=== PATIENT | female | born 1990 | race Caucasian/White ===

== ENCOUNTER 2017-04-02 12:59 | Emergency (ER) | payer MEDICAID ==
[2017-04-02 13:06] VITALS: BP 139/88; PULSE 67; RESP 16; TEMP 96.8; O2SAT 97
--- NOTE | 2017-04-02 15:35 | EDPHY ---
General Time Seen by Provider: 04/02/17 15:00 Narrative: CHIEF COMPLAINT: Laceration HISTORY OF PRESENT ILLNESS: Patient presents with complaints of laceration to the right hand. This is over the ulnar side of the palm. This happened while cleaning out a can of food. She cut on the inside of the can. Moderately painful. Worse with movement and palpation. Improved at rest. Bleeding that has stopped with pressure. No numbness or tingling. No difficulty moving the fingers. No injury elsewhere. She feels that she is up-to-date on her tetanus less than 5 years ago. No other associated complaints or modifying factors. Right-hand dominant. TIME OF INJURY: 1 hr prior to arrival TETANUS STATUS: Up-to-date less than 5 years ago MEDICAL/SURGICAL/SOCIAL HISTORY: Uncomplicated medical history. 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 REVIEW OF SYSTEMS: Ten systems reviewed and are negative unless otherwise noted in the HPI EXAMINATION General Appearance: Alert, no distress Head: normocephalic, atraumatic Cardiovascular: Symmetric radial pulses 2+. Brisk cap refill of all fingers. Neurological: A&O, sensory symmetric, interossei strength symmetric. Skin: Warm and dry, no rash. 2.5 cm laceration on the right hand, ulnar side midportion of the 5th metacarpal. No pulsatile bleeding. No foreign body. No exposure of the underlying tendon apparatus. Extremities: Tender in the area of laceration. Range of motion is intact and symmetric to the left upper extremity. DIFFERENTIAL DIAGNOSES: Including but not limited to laceration, complex laceration, laceration with tendon injury MDM: 3:00 p.m. Simple laceration to the right hand that will require suture repair. I have anesthetize the area. Proceed with irrigation closure. 3:30 p.m. Laceration has been closed without difficulty. Excellent approximation of wound borders. Neurovascular intact postprocedure. Wound care discussed. Recommend anti-inflammatories [id number]. Recommend ice and elevation. Recommend return to work in 48-72 hours. ED precautions discussed. Return to the emergency department 7-10 days for suture removal. Discharged home stable condition PROCEDURE: Laceration repair Consent: Verbal Location: Right hand, ulnar side Length of repair: 2.5 cm Complexity: Simple Layer involvement: Single Anesthesia: Local per 1% lidocaine plain. 5 mL Irrigation: Extensive Debridement: None Procedure description: Following good anesthesia, the wound was copiously irrigated. Wound bed was explored with a sterile glove, and there is no foreign body noted. Wound borders were approximated well with good hemostasis. Tolerated well without complication. Suture/Staple material: 5-0 Ethilon, 3 simple interrupted sutures Wound care: Routine as discussed Suture/Staple removal: 7-10 Days SUPERVISION: This patient was independently evaluated without direct involvement of or examination by the attending physician. ED Precautions: Worsening pain. Erythema, edema, cyanosis, pallor, paresthesia or anesthesia. - History Smoking Status: Never smoked - Objective Vital Signs: Initial Vital Signs Temperature (C) 96.8 F 04/02/17 13:03 Heart Rate 67 04/02/17 13:03 Respiratory Rate 16 04/02/17 13:03 Blood Pressure 139/88 H 04/02/17 13:03 O2 Sat (%) 97 04/02/17 13:03 O2 Delivery Mode Room Air Allergies/Adverse Reactions: penicillin G Allergy (Verified 04/02/17 13:03) Home Medications: Medication Instructions Recorded NK [No Known Home Meds] 04/02/17 Departure - Departure Disposition: Home, Routine, Self-Care Clinical Impression: Hand laceration Qualifiers: Encounter type: initial encounter Foreign body presence: without foreign body Laterality: right Qualified Code(s): S61.411A - Laceration without foreign body of right hand, initial encounter Condition: Good Instructions: Care For Your Stitches (DC), Laceration (ED) Additional Instructions: 1. Daily wound care as discussed 2. Return to work in 48-72 hours as tolerated 3. ED precautions as discussed 4. Suture removal here in 7-10 days Referrals: Physician,Emergency Dept, MD [Medical Doctor] - As per Instructions
== END 2017-04-02 15:35 | disposition home or self-care (01) ==
PROC: 0HQFXZZ Repair Right Hand Skin, External Approach (ICD-10-PCS; principal; 2017-04-02)
DX: S61.411A Laceration without foreign body of right hand, initial encounter (principal); W26.8XXA Contact with other sharp object(s), not elsewhere classified, initial encounter

== ENCOUNTER 2018-05-20 19:05 | Emergency (ER) | payer MEDICAID ==
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
[2018-05-20 19:59] VITALS: BP 117/78
== END 2018-05-20 19:59 | disposition home or self-care (01) ==
DX: R10.32 Left lower quadrant pain (principal); K59.00 Constipation, unspecified